=== PATIENT | female | born 1995 | race Hispanic/Latino ===

== ENCOUNTER 2020-08-01 23:49 | Observation (INO) | payer BC, MEDICAID, OTHER ==
[~2020-08-01] VITALS: Ht 157.5 cm; Wt 88.9 kg
[2020-08-01] MEDS ORDERED: 0.9%NACL 1000ML 1,000 ML IV ONE (23:53)
[2020-08-02] VITALS (24 sets, daily range): BP systolic 99–153; BP diastolic 52–82
[2020-08-02 00:28] LABS: BASOPHILS % (AUTO) 0.2 % (0.0-5.0); EOSINOPHILS % (AUTO) 0.3 % (0.0-8.0); HEMATOCRIT 32.8 % (36-48); LYMPHOCYTES % (AUTO) 15.7 % (21.0-51.0); MEAN CORPUSCULAR HEMOGLOBIN 30.9 pg (27.0-33.0); MEAN CORPUSCULAR HGB CONC 34.8 g/dL (32.0-36.0); MEAN CORPUSCULAR VOLUME 88.9 fL (79-99); MONOCYTES % (AUTO) 4.8 % (3.0-13.0); NEUTROPHILS % (AUTO) 78.5 % (40.0-77.0); PLATELET COUNT (AUTO) 271 K/uL (130-400); RED BLOOD CELL COUNT(AUTO) 3.69 MIL/uL (4.00-5.50); WHITE BLOOD COUNT (AUTO) 18.1 K/uL (4.8-10.8)
[2020-08-02 00:36] LABS: INR 1.05 (0.85-1.15); PROTHROMBIN TIME 11.4 SEC (9.6-11.6)
[2020-08-02 00:37] LABS: PARTIAL THROMBOPLASTIN TIME 21.1 SEC (26.3-35.5)
[2020-08-02 00:57] LABS: ALBUMIN 3.8 g/dL (3.5-5.0); BILIRUBIN,TOTAL 0.3 mg/dL (0.2-1.0); CREATININE 0.7 mg/dL (0.5-1.5); POTASSIUM 3.2 mmol/L (3.5-5.1); TOTAL PROTEIN, SERUM 7.1 g/dL (6.0-8.3)
[2020-08-02 01:15] LABS: APPEARANCE,URINE Clear (CLEAR); BILIRUBIN,URINE Negative (NEGATIVE); COLOR,URINE Yellow (YELLOW); GLUCOSE, URINE (UA) Negative (NEGATIVE); KETONES,URINE Negative (NEGATIVE); LEUKOCYTE ESTERASE ,URINE Trace (NEGATIVE); NITRATE,URINE Negative (NEGATIVE); OCCULT BLOOD,URINE Nonhemolyzed Trace (NEGATIVE); PROTEIN,URINE POS 2+ mg/dL (NEGATIVE)
[2020-08-02 01:31] LABS: BACTERIA,URINE Rare /HPF (None Seen); WBC,URINE 0-1 /HPF (0-1)
[2020-08-02 03:29] LABS: HEMATOCRIT 28.3 % (36-48)
[2020-08-02] MEDS ORDERED: SUCCINYLCHOLINE CHLORIDE 20 MG/ML 10 ML VIAL ONE (04:15)
[2020-08-02] MEDS ORDERED: LIDOCAINE PF 100MG/5ML (2%) SYRINGE 5ML ONE (04:15)
[2020-08-02] MEDS ORDERED: ROCURONIUM 10MG/1ML SYR 10 MG/ML ML ONE (04:16)
[2020-08-02] MEDS ORDERED: MIDAZOLAM HCL 1 MG/ML 2ML VIAL ONE ×2 (04:16→06:06)
[2020-08-02] MEDS ORDERED: PROPOFOL 10 MG/ML 20ML VIAL IV ONE (04:16)
[2020-08-02] MEDS ORDERED: FENTANYL CITRATE PF 50 MCG/1 ML 2ML VIAL ONE (04:54)
[2020-08-02] MEDS ORDERED: CEFAZOLIN SODIUM 1 GM VIAL ONE (05:03)
[2020-08-02] MEDS ORDERED: ALBUMIN (HUMAN) 5% 250 ML IV ONE (05:22)
[2020-08-02] MEDS ORDERED: ONDANSETRON 4MG INJ ONE (05:48)
[2020-08-02] MEDS ORDERED: GLYCOPYRROLATE 1 MG/5 ML SYRINGE ONE (05:48)
[2020-08-02] MEDS ORDERED: NEOSTIGMINE 5MG/5ML SYR IV ONE (05:48)
[2020-08-02] MEDS ORDERED: BUPIVACAINE/PF 0.5% 30ML VIAL ONE (05:50)
[2020-08-02] MEDS: 0.9%NACL 1000ML 1,000 ML IV ONE (06:16)
[2020-08-02] MEDS ORDERED: MEPERIDINE-PF 25 MG/ML SYG ONE (06:39)
[2020-08-02] MEDS ORDERED: MEPERIDINE-PF 75 MG/ML SYG IM PRN (07:45)
[2020-08-02] MEDS ORDERED: PROMETHAZINE HCL 25 MG/ML 1ML AMPULE IM PRN ×2 (07:45)
[2020-08-02] MEDS ORDERED: ACETAMINOPHEN WITH CODEINE 1 TAB TAB PO PRN (07:45)
[2020-08-02] MEDS ORDERED: BISACODYL 10 MG SUPP.RECT RC PRN (07:45)
[2020-08-02] MEDS: DEXTROSE 5%-LACTATED RINGERS 1,000 ML IV SCH ×2 (09:13→19:32)
[2020-08-02] MEDS: CALDOLOR 800MG+NS 250ML 250 ML IV SCH ×2 (14:32→22:23)
[2020-08-02] MEDS: SIMETHICONE 80 MG TAB.CHEW PO PRN (21:21)
[2020-08-02] MEDS: DOCUSATE SODIUM 100 MG CAP PO PRN (21:21)
[2020-08-03 03:35] VITALS: BP 106/47
[2020-08-03] MEDS: DEXTROSE 5%-LACTATED RINGERS 1,000 ML IV SCH (05:52)
[2020-08-03] MEDS: CALDOLOR 800MG+NS 250ML 250 ML IV SCH (06:30)
[2020-08-03 06:40] LABS: MEAN CORPUSCULAR HEMOGLOBIN 31.4 pg (27.0-33.0); MEAN CORPUSCULAR HGB CONC 33.8 g/dL (32.0-36.0); MEAN CORPUSCULAR VOLUME 92.9 fL (79-99); RED BLOOD CELL COUNT(AUTO) 2.26 MIL/uL (4.00-5.50); RED CELL DISTRIBUTION WIDTH 13.3 % (11.0-15.5); WHITE BLOOD COUNT (AUTO) 6.3 K/uL (4.8-10.8)
[2020-08-03 07:19] VITALS: BP 98/48
[2020-08-03] MEDS ORDERED: HYDROCODONE/ACETAMINOPHEN 5/325 MG TAB PO PRN (08:15)
[2020-08-03] MEDS ORDERED: IBUPROFEN 800 MG TAB PO PRN (08:15)
[2020-08-03] MEDS ORDERED: ACETAMINOPHEN WITH CODEINE 1 TAB TAB PO PRN (08:15)
[2020-08-03] MEDS: DOCUSATE SODIUM 100 MG CAP PO PRN (08:49)
[2020-08-03] MEDS: SIMETHICONE 80 MG TAB.CHEW PO PRN (08:49)
[2020-08-03 11:00] VITALS: BP 110/57
[2020-08-03] MEDS ORDERED: IBUP-2077 PO (12:27)
[2020-08-03] MEDS ORDERED: DOCU-116 PO (12:28)
[2020-08-03] MEDS ORDERED: ACET1TAB25 PO (12:28)
[2020-08-03] MEDS ORDERED: FERR325T22 PO (12:30)
== END 2020-08-03 14:05 | disposition home or self-care (01) ==
LOC: EDH 23:49 → WSH 08-02 06:05
PROVIDERS: ADMIT Obstetrics & Gynecology; ATTEND Obstetrics & Gynecology
DX: O00.102 Left tubal pregnancy without intrauterine pregnancy (principal); K66.1 Hemoperitoneum
CPT/HCPCS: 36415 ×3; 58700; 76801; 80053; 81001; 84702; 85014; 85018; 85025; 85027; 85610; 85730; 86850; 86900; 86901; 86923; 87040 ×2; 93005; 96361 ×2; 96365; 96366; 96372; 99285; A4344; A4351; A4930; G0378 ×30; J0330; J0690; J1741 ×2; J2001; J2175 ×2; J2250 ×2; J2405; J2550; J2704; J2710; J3010; J3490 ×2; J7030 ×3; P9045

== ENCOUNTER 2021-09-20 18:39 | Emergency (ER) | payer BC ==
[~2021-09-20] VITALS: Ht 157.5 cm; Wt 56.7 kg
[~2021-09-20 18:39] MED LIST: ACET-2079 PO; DOCU-116 PO; FERR325T22 PO; IBUP-2077 PO
[2021-09-20 20:09] LABS: BASOPHILS % (AUTO) 0.4 % (0.0-5.0); EOSINOPHILS % (AUTO) 0.5 % (0.0-8.0); HEMATOCRIT 41.9 % (36-48); LYMPHOCYTES % (AUTO) 19.3 % (21.0-51.0); MEAN CORPUSCULAR HEMOGLOBIN 30.8 pg (27.0-33.0); MEAN CORPUSCULAR HGB CONC 34.4 g/dL (32.0-36.0); MEAN CORPUSCULAR VOLUME 89.7 fL (79-99); MONOCYTES % (AUTO) 7.5 % (3.0-13.0); NEUTROPHILS % (AUTO) 71.9 % (40.0-77.0); PLATELET COUNT (AUTO) 266 K/uL (130-400); RED BLOOD CELL COUNT(AUTO) 4.67 MIL/uL (4.00-5.50); RED CELL DISTRIBUTION WIDTH 12.3 % (11.0-15.5); WHITE BLOOD COUNT (AUTO) 13.9 K/uL (4.8-10.8)
[2021-09-20 20:13] LABS: APPEARANCE,URINE Clear (CLEAR); BILIRUBIN,URINE Negative (NEGATIVE); COLOR,URINE Orange (YELLOW); GLUCOSE, URINE (UA) Negative (NEGATIVE); KETONES,URINE Negative (NEGATIVE); LEUKOCYTE ESTERASE ,URINE Large (NEGATIVE); NITRATE,URINE Positive (NEGATIVE); OCCULT BLOOD,URINE Large (NEGATIVE); PROTEIN,URINE POS 1+ mg/dL (NEGATIVE); UROBILINOGEN,URINE 0.2 mg/dL (0.2-1.0)
[2021-09-20 20:15] LABS: HCG,QUAL RESULT NEGATIVE (NEGATIVE)
[2021-09-20 20:22] LABS: CREATININE 0.7 mg/dL (0.5-1.5); POTASSIUM 3.9 mmol/L (3.5-5.1)
[2021-09-20 20:27] LABS: ALBUMIN 4.5 g/dL (3.5-5.0); BILIRUBIN,TOTAL 0.3 mg/dL (0.2-1.0); TOTAL PROTEIN, SERUM 8.6 g/dL (6.0-8.3)
[2021-09-20 20:28] LABS: BACTERIA,URINE Few /HPF (None Seen); SQUAMOUS EPITHELIAL CELL,UR Few /HPF (0-2)
[2021-09-20] MEDS ORDERED: KETOROLAC 15MG/ML VIAL (15MG/ML) IV ONE (21:30)
[2021-09-20] MEDS ORDERED: 0.9%NACL 1000ML 1,000 ML IV ONE (21:30)
[2021-09-20] MEDS ORDERED: ONDANSETRON 4MG INJ IVP ONE (21:30)
[2021-09-20] MEDS ORDERED: CEFTRIAXONE 1G VIAL IVP ONE (21:30)
[2021-09-20] MEDS ORDERED: CEPH500B PO (22:10)
[2021-09-20] MEDS ORDERED: PHEN-847 PO (22:10)
[2021-09-20] MEDS ORDERED: ONDA4TAB10 PO (22:10)
[2021-09-20 22:22] VITALS: BP 132/78
== END 2021-09-20 22:29 | disposition home or self-care (01) ==
LOC: EDH 18:39
DX: N30.91 Cystitis, unspecified with hematuria (principal); Z79.1 Long term (current) use of non-steroidal anti-inflammatories (NSAID)
CPT/HCPCS: 36415; 74176; 80053; 81001; 81025; 85025; 87077; 87088; 87186; 96361; 96374; 96375; 99284; J0696; J1885; J2405; J7030

== ENCOUNTER 2022-10-08 21:31 | Emergency (ER) | payer BC ==
[~2022-10-08] VITALS: Ht 157.5 cm; Wt 100.2 kg
[~2022-10-08 21:31] MED LIST changes: +CEPH500B PO; +ONDA4TAB10 PO; +PHEN-847 PO
[2022-10-08 21:32] VITALS: BP 138/96; PULSE 82; RESP 16; O2SAT 99
[2022-10-08 22:39] LABS: BASOPHILS % (AUTO) 0.3 % (0.0-5.0); EOSINOPHILS % (AUTO) 0.3 % (0.0-8.0); HEMATOCRIT 41.9 % (36-48); LYMPHOCYTES % (AUTO) 20.1 % (21.0-51.0); MEAN CORPUSCULAR HEMOGLOBIN 29.7 pg (27.0-33.0); MEAN CORPUSCULAR HGB CONC 33.9 g/dL (32.0-36.0); MEAN CORPUSCULAR VOLUME 87.7 fL (79-99); MONOCYTES % (AUTO) 5.9 % (3.0-13.0); NEUTROPHILS % (AUTO) 73.1 % (40.0-77.0); PLATELET COUNT (AUTO) 207 K/uL (130-400); RED BLOOD CELL COUNT(AUTO) 4.78 MIL/uL (4.00-5.50); RED CELL DISTRIBUTION WIDTH 12.5 % (11.0-15.5); WHITE BLOOD COUNT (AUTO) 9.2 K/uL (4.8-10.8)
[2022-10-08 22:45] LABS: CREATININE 0.8 mg/dL (0.5-1.5)
[2022-10-08 22:50] LABS: ALBUMIN 4.5 g/dL (3.5-5.0); TOTAL PROTEIN, SERUM 8.8 g/dL (6.0-8.3)
[2022-10-09 00:08] LABS: APPEARANCE,URINE CLEAR (CLEAR); BILIRUBIN,URINE NEGATIVE (NEGATIVE); COLOR,URINE YELLOW (YELLOW); GLUCOSE, URINE (UA) NEGATIVE (NEGATIVE); KETONES,URINE 60 mg/dL (NEGATIVE); LEUKOCYTE ESTERASE ,URINE NEGATIVE Leu/uL (NEGATIVE); NITRATE,URINE NEGATIVE (NEGATIVE); PH,URINE 5.5 (5.0-8.0); PROTEIN,URINE 20 mg/dL (NEGATIVE); UROBILINOGEN,URINE 0.2 mg/dL (0.2-1.0)
[2022-10-09 00:09] LABS: HCG,QUALITATIVE URINE NEGATIVE (NEGATIVE)
[2022-10-09 00:13] LABS: BACTERIA,URINE RARE /HPF (None Seen); MUCUS,URINE MOD LPF (None Seen); SQUAMOUS EPITHELIAL CELL,UR FEW /HPF (0-2)
[2022-10-09] MEDS ORDERED: IBUP-1493 PO (01:13)
[2022-10-09] MEDS ORDERED: OMEP40CA21 PO (01:13)
[2022-10-09] MEDS ORDERED: MAG-55 PO (01:13)
[2022-10-09] MEDS ORDERED: ONDA-104 PO (01:13)
== END 2022-10-09 01:46 | disposition home or self-care (01) ==
LOC: EDH 21:31
DX: K27.9 Peptic ulcer, site unspecified, unspecified as acute or chronic, without hemorrhage or perforation (principal); Z20.822 Contact with and (suspected) exposure to COVID-19
CPT/HCPCS: 99284; 87635; 80053; 85025; 87804 ×2; 81001; 81025; 36415; 76705; C9803

== ENCOUNTER 2023-10-16 19:05 | Emergency (ER) | payer BC, OTHER ==
[~2023-10-16] VITALS: Ht 157.5 cm; Wt 108.9 kg
[~2023-10-16 19:05] MED LIST changes: +IBUP-1493 PO; +MAG-55 PO; +OMEP40CA21 PO; +ONDA-104 PO; +ONDA-243 PO; -ONDA4TAB10 PO
[2023-10-16 20:16] LABS: APPEARANCE,URINE CLEAR (CLEAR); BILIRUBIN,URINE NEGATIVE (NEGATIVE); COLOR,URINE COLORLESS (YELLOW); GLUCOSE, URINE (UA) NEGATIVE (NEGATIVE); KETONES,URINE NEGATIVE (NEGATIVE); LEUKOCYTE ESTERASE ,URINE NEGATIVE Leu/uL (NEGATIVE); NITRATE,URINE NEGATIVE (NEGATIVE); PH,URINE 6.5 (5.0-8.0); PROTEIN,URINE NEGATIVE (NEGATIVE); UROBILINOGEN,URINE 0.2 mg/dL (0.2-1.0)
[2023-10-16 20:17] LABS: ADD UA MICROSCOPIC YES
[2023-10-16 20:18] LABS: HCG,QUALITATIVE URINE NEGATIVE (NEGATIVE)
[2023-10-16 20:19] LABS: BACTERIA,URINE RARE /HPF (None Seen); SQUAMOUS EPITHELIAL CELL,UR RARE /HPF (0-2); WBC,URINE 0-1 /HPF (0-1)
[2023-10-16 21:03] VITALS: BP 143/84; PULSE 81; RESP 20; O2SAT 99
== END 2023-10-16 21:04 | disposition home or self-care (01) ==
LOC: EDH 19:05
DX: N39.8 Other specified disorders of urinary system (principal); Z79.899 Other long term (current) drug therapy; Z98.890 Other specified postprocedural states
CPT/HCPCS: 81001; 81025

== ENCOUNTER 2024-02-08 14:26 | Emergency (ER) | payer OTHER ==
[~2024-02-08] VITALS: Ht 157.5 cm; Wt 108.9 kg
--- NOTE | 2024-02-08 15:32 | ERN ---
ED Note History of Present Illness Stated Complaint: HEADACHE Chief Complaint: Headache Time Seen by : 14:28 Dictation: PATIENT IS A 28-YEAR-OLD FEMALE COMING IN TODAY WITH COMPLAINTS OF A LEFT RETRO- ORBITAL HEADACHE THAT HAS BEEN INTERMITTENT HOWEVER CONSISTENT FOR THE LAST THREE DAYS. SHE HAS HAD NAUSEA VOMITING. NO FEVER NO CHILLS NO VISION CHANGES, WEARS GLASSES STATES HER LAST GLASSES CHECK WAS IN APRIL 05, 2023. [facility] IS 0 STATES SHE HAS HAD HEADACHES IN THE PAST BUT NORMALLY THEY GO AWAY WITH [id number] MEDICATIONS. NO FEVER NO CHILLS Allergies: Coded Allergies: No Known Drug Allergies (Unverified Allergy, Unknown, 08/02/20) Home Meds Active Scripts Butalb/Acetaminophen/Caffeine (Esgic 50-325-40 mg Tablet) 50 Mg-325 Mg-40 Mg Tablet, 2 EACH PO Q4PRN for HEADACHE, #20 TAB 0 Refills TWO TABLETS BY MOUTH EVERY 4 HOURS P.R.N. HEADACHE, MAXIMUM SIX TABLETS IN 24 HOURS Prov:MAMI PRAKASH NP 02/08/24 Ibuprofen (Motrin/Advil) 800 Mg Tab, 800 MG PO TID, #30 TAB Prov:ARIK MERCEDES MD 10/09/22 Ondansetron HCl (Ondansetron HCl) 4 Mg Tablet, 4 MG PO TIDP PRN for VOMITING, #20 TAB Prov:ARIK MERCEDES MD 10/09/22 Omeprazole (Omeprazole) 40 Mg Capsule.dr, 40 MG PO DAILY, #30 CAP Prov:ARIK MERCEDES MD 10/09/22 Mag Hydrox/Al Hydrox/Simeth (Maalox Maximum Strength Susp) 355 Ml Oral.susp, 15 ML PO QID, #355 ML Prov:ARIK MERCEDES MD 10/09/22 Ondansetron (Ondansetron Odt) 4 Mg Tab.rapdis, 4 MG PO TID PRN for NAUSEA/VOMITING, #15 TAB Prov:KASIA PERRY 09/20/21 Phenazopyridine HCl (Pyridium) 200 Mg Tab, 200 MG PO TIDPC, #6 TAB TAKE WITH FOOD TO PREVENT STOMACH UPSET. Prov:KASIA PERRY 09/20/21 Cephalexin Monohydrate (Keflex) 500 Mg Cap, 500 MG PO QID for 7 Days, #28 CAP Prov:KASIA PERRY PRESIDENT + PUBLISHER 09/20/21 Reported Medications Ferrous Sulfate (Ferrous Sulfate) 325 Mg Tablet, 325 MG PO DAILY, TAB 08/03/20 Acetaminophen with Codeine (Acetaminophen-Cod #3 Tablet) 1 Each Tablet, 1 EACH PO Q4HPRN PRN for PAIN LEVEL 6 TO 10, TAB 08/03/20 Docusate Sodium (Colace) 100 Mg Capsule, 100 MG PO BID, CAP 08/03/20 Ibuprofen (Ibuprofen 800 mg Tab) 800 Mg Tab, 800 MG PO Q6H PRN for PAIN, TAB 08/03/20 Past Medical History Past Medical History: No Pertinent History Surgical History: Other Surgical History Other: ECTOPIC PREG, NASAL SX PSYCH History: no pertinent psych hx Family History: Negative Social History: Negative, Lives with family History: Not Applicable : 1 Para: 0 Aborts: 1 RN Note Reviewed/Agreed w/PFSH: Yes Review of System Dictation CONSTITUTIONAL: NEGATIVE EXCEPT FOR HPI HEAD/FACE: NEGATIVE EXCEPT FOR HPI EENT: NEGATIVE EXCEPT FOR HPI RESPIRATORY: NEGATIVE EXCEPT FOR HPI GASTROINTESTINAL/ABDOMINAL: NEGATIVE EXCEPT FOR HPI NAUSEA VOMITING GENITOURINARY: NEGATIVE EXCEPT FOR HPI MUSCULOSKELETAL: NEGATIVE EXCEPT FOR HPI INTEGUMENTARY: NEGATIVE EXCEPT FOR HPI NEUROLOGICAL/PSYCH: NEGATIVE EXCEPT FOR HPI LEFT RETRO-ORBITAL HEADACHE HEMATOLOGIC/LYMPHATIC: NEGATIVE EXCEPT FOR HPI ALL SYSTEMS NEGATIVE, EXCEPT NOTED ABOVE. 13 POINT REVIEW OF SYSTEMS ASSESSED AND ALL NEGATIVE EXCEPT FOR ABOVE. Initial Vital Sign VS Vital Signs Date Time Temp Pulse Resp B/P (MAP) Pulse Ox O2 Delivery O2 Flow Rate FiO2 02/08/24 14:27 98.4 94 18 108/81 98 Room Air 0 02/08/24 15:43 21 Physical Exam Dictation VITAL SIGNS REVIEWED GENERAL APPEARANCE: ALERT, ORIENTED X 3, MILD ACUTE DISTRESS, WELL DEVELOPED, NOURISHED. HEAD AND FACE: NON-TRAUMATIC. EYES: PERRL, PINK CONJUNCTIVAS, EYELID NO TRAUMA, ANTERIOR CHAMBER WITH ARCUS SENILIS. EARS: PINNAS INTACT AND NO SIGNS OF TRAUMA OR ERYTHEMA EAR CANALS CLEAR AND NO DISCHARGE TM NO ERYTHEMA NOSE: NO DISCHARGE, NO BLEEDING. OROPHARYNX: MOUTH NORMAL, TONGUE PINK, PHARYNX CLEAR,NO ERYTHEMA, TONSILS NO EXUDATES, NO ABSCESSES NOTED, MUCOUS MEMBRANE MOIST NECK: SUPPLE, NON-TENDER, NO THYROMEGALY, NO MASSES, NO JVD, NO BRUITS BREAST:DEFERRED CHEST:NO TENDERNESS, NO CREPITUS, NO PARADOXICAL MOVEMENT, NO RETRACTIONS LUNGS:CLEAR, WELL-VENTILATED, SYMMETRIC, NO RALES, NO WHEEZING, NO RHONCHI, NO STRIDOR, GOOD BREATH SOUNDS BILATERALLY HEART: REGULAR RATE, REGULAR RHYTHM, NO MURMUR, NO GALLOPS VASCULAR: NO PERIPHERAL EDEMA, ABDOMEN: SOFT, POSITIVE BOWEL SOUNDS, NONDISTENDED, NO GUARDING, NONTENDER, NO REBOUND, NO MASSES NO HEPATOMEGALY, NO SPLENOMEGALY, NO ORTEGA'S SIGN, NO HERNIAS. RECTAL: DEFERRED GENITAL: DEFERRED NEUROLOGICAL: NORMAL SPEECH, MOTOR FUNCTION INTACT, SENSORY FUNCTION INTACT NIH IS 0 MUSCULOSKELETAL: NECK NONTENDER, FULL RANGE OF MOTION, BACK NONTENDER, FULL RANGE OF MOTION, EXTREMITIES: NONTENDER, FULL RANGE OF MOTION SKIN: COLOR PINK, DRY, NO TURGOR, NO RASH, NO LACERATIONS, NO ABRASIONS, NO CONTUSIONS. LYMPHATIC: DEFERRED Results (Laboratory/Radiology) Laboratory/Radiology Laboratory Tests Test 02/08/24 15:46 Serum Test, Qualitative NEGATIVE (NEGATIVE) Labs Reviewed?: Yes ED Course ED Course Orders Procedure Category Date Status Time Cyclobenzaprine Hcl PHA 02/08/24 Complete (Cyclobenzaprine Hcl 15:30 Hydrocodone/Apap PHA 02/08/24 Complete 5/325 (Yucca 5/325mg) 15:30 Testing, LAB 02/08/24 Complete Serum Hcg 15:28 Ondansetron Odt 4mg PHA 02/08/24 Complete Tab (Zofran 4mg Odt) 15:30 Current Medications Medications (Trade) Dose Ordered Sig/Ciera Route PRN Reason Start Time Stop Time Status Last Admin Dose Admin Acetaminophen/ Hydrocodone Bitart (NORco 5/325MG) 1 tab ONCE ONCE PO 02/08/24 15:30 02/08/24 15:31 DC 02/08/24 15:38 Cyclobenzaprine HCl (Cyclobenzaprine HCl) 10 mg ONCE ONCE PO 02/08/24 15:30 02/08/24 15:31 DC 02/08/24 15:38 Ondansetron HCl (zoFRAN 4MG ODT) 4 mg ONCE ONCE SL 02/08/24 15:30 02/08/24 15:31 DC 02/08/24 15:38 Vital Signs Date Time Temp Pulse Resp B/P (MAP) Pulse Ox O2 Delivery O2 Flow Rate FiO2 02/08/24 16:40 98.2 85 18 124/74 99 Room Air* 0 21 02/08/24 15:43 98.4 77 18 133/97 100 Room Air* 0 21 02/08/24 14:27 98.4 94 18 108/81 98 Room Air 0 1637, PATIENT STATES PAIN IS RESOLVED AFTER TREATMENT. WE WILL BE DISCHARGED HOME WITH TENSION HEADACHE, WE WILL BE PROVIDED FIORICET AND TOLD TO SEE HER PRIMARY CARE DOCTOR FOR FOLLOW UP. Medical Decision Making MDM MEDICAL DISCHARGE MAKING BASED ON EMPIRIC TREATMENT OF TENSION HEADACHE HCG WAS ESTABLISHED TO ASSURE THAT SHE WAS NOT DISCHARGED HOME WITH FIORICET TOLD TO SEE HER PRIMARY CARE DOCTOR NEUROLOGICALLY INTACT DX & DISP Disposition: Discharge Departure Impression: Primary Impression: Tension headache Condition: Stable Scripts Butalb/Acetaminophen/Caffeine (Esgic 50-325-40 mg Tablet) 50 Mg-325 Mg-40 Mg Tablet 2 EACH PO Q4PRN for HEADACHE, #20 TAB 0 Refills TWO TABLETS BY MOUTH EVERY 4 HOURS P.R.N. HEADACHE, MAXIMUM SIX TABLETS IN 24 HOURS Prov: MAMI PRAKASH ALLERGIST/IMMUNOLOGIST 02/08/24 Additional Instructions: FOLLOW-UP WITH PRIMARY CARE PROVIDER IN 1 TO 2 DAYS. TAKE MEDICATIONS DIRECTED HERE IN THE EMERGENCY ROOM. OKAY TO CONTINUE HOME MEDICATIONS UNLESS OTHERWISE DISCUSSED DURING YOUR VISIT IN THE EMERGENCY ROOM TODAY. RETURN TO YOUR NEAREST EMERGENCY ROOM IF SYMPTOMS WORSEN OR IF THERE IS NO IMPROVEMENT. CALL 911 IF YOU NEED IMMEDIATE ASSISTANCE. TAKE TYLENOL OR MOTRIN [id number] NEEDED AND IF NO CONTRAINDICATIONS ARE PRESENT. INCREASE ORAL HYDRATION. A WOUND CULTURE OR URINE CULTURE WAS ORDERED HERE IN THE EMERGENCY ROOM DEPARTMENT PLEASE FOLLOW-UP WITH PRIMARY CARE PROVIDER AND ADVISE THEM TO GET REPEAT PORTS FROM OUR FACILITY. IF YOU HAD ANY HENRY WRAP/SPLINTS T HAT WERE APPLIED HERE, PLEASE DO NOT REMOVE THEM UNTIL YOU SEE YOUR PRIMARY CARE OR SPECIALTY. TAKE MEDICATIONS DIRECTED FOR YOUR HEADACHE. FOLLOW UP WITH YOUR PRIMARY CARE DOCTOR NEEDED FOR REFERRAL TO NEUROLOGY Referrals: TATA CATALAN MD (PCP) Time of Disposition: 16:38 I have reviewed the case, and I agree with, Diagnosis and Plan I performed a substantive portion of the visit. I have reviewed and personally made and approve the management plan that is documented in the notes by myself with BEA/resident. I acknowledged full responsibility for the patient's management plan. MAMI PRAKASH NP Feb 08, 2024 15:32 JUAN CAMPOVERDE DO Feb 10, 2024 11:16
[2024-02-08] MEDS: HYDROcodone/APAP 5/325 1 TAB TABLET PO ONE (15:38)
[2024-02-08] MEDS: CYCLOBENZAPRINE HCL 10 MG TABLET PO ONE (15:38)
[2024-02-08] MEDS: ondanSETRON ODT 4MG TAB SL ONE (15:38)
[2024-02-08] MEDS ORDERED: BUTA-271 PO (16:39)
[2024-02-08 16:40] VITALS: BP 124/74; PULSE 85; RESP 18; TEMP 98.3; O2SAT 99
== END 2024-02-08 16:49 | disposition home or self-care (01) ==
LOC: EDH 14:26
DX: G44.209 Tension-type headache, unspecified, not intractable (principal); Z79.1 Long term (current) use of non-steroidal anti-inflammatories (NSAID); Z79.899 Other long term (current) drug therapy
CPT/HCPCS: 36415; 84703; 99284